=== PATIENT | male | born 1955 | race Caucasian/White ===

== ENCOUNTER 2017-12-24 05:49 | Day surgery (SDC) | payer OTHER | END 2017-12-24 07:15 | disposition home or self-care (01) | LOC: CCL 05:49 → SDS 05:49 | DX: R07.9 Chest pain, unspecified (principal); Z53.9 Procedure and treatment not carried out, unspecified reason; Z87.891 Personal history of nicotine dependence; I10 Essential (primary) hypertension; R94.31 Abnormal electrocardiogram [ECG] [EKG] ==

== ENCOUNTER 2017-12-30 05:22 | Day surgery (SDC) | payer OTHER ==
[2017-12-29] MEDS: SOD CHLORIDE 0.9% 1,000 ML IV (06:00)
[2017-12-30 06:12] LABS: ADD MAN DIFF? NO
[2017-12-30 06:22] LABS: BASOPHILS % 0.6 % (0.0-2.0); EOSINOPHILS # 0.2 10^3/ul (0.0-0.5); EOSINOPHILS % 2.3 % (0.0-7.0); HEMATOCRIT 45.3 % (42.0-52.0); HEMOGLOBIN 15.6 g/dl (14.0-18.0); LYMPHOCYTES # 1.9 10^3/ul (0.8-2.9); MEAN CORPUSCULAR HEMOGLOBIN 31.7 pg (29.0-33.0); MEAN CORPUSCULAR HGB CONC 34.4 g/dl (32.0-37.0); MEAN CORPUSCULAR VOLUME 92.1 fl (82.0-101.0); MEAN PLATELET VOLUME 11.9 fl (7.4-10.4); MONOCYTE # 0.4 10^3/ul (0.3-0.9); MONOCYTES % 6.5 % (0.0-11.0); NEUTROPHIL # 3.9 10^3/ul (1.6-7.5); NEUTROPHILS % 60.4 % (39.0-77.0); PLATELET COUNT 232 10^3/UL (140-415); RED BLOOD COUNT 4.92 10^6/ul (4.70-6.10); RED CELL DISTRIBUTION WIDTH 12.1 % (11.5-14.5)
[2017-12-30 06:22] LABS: WHITE BLOOD COUNT 6.5 10^3/ul (4.8-10.8)
[2017-12-30 06:41] LABS: ANION GAP 11 (8-16); BLOOD UREA NITROGEN 17 mg/dl (7-20); CALCIUM 9.3 mg/dl (8.4-10.2); CARBON DIOXIDE 27 mmol/L (21-31); CHLORIDE 105 mmol/L (97-110); GLUCOSE 109 mg/dl (70-220); POTASSIUM 3.3 mmol/L (3.5-5.1); SODIUM 140 mmol/L (135-144)
[2017-12-30 06:42] LABS: INR 0.88; PT RATIO 0.9
[2017-12-30] MEDS ORDERED: SOD CHLORIDE 0.9% 1,000 ML IV (07:09)
[2017-12-30] MEDS ORDERED: FENTAnyl 50 MCG/ML VIAL (07:12)
[2017-12-30] MEDS ORDERED: MIDAZOLAM 1 MG/ML 2 ML INJ (07:12)
[2017-12-30] MEDS ORDERED: IODIXANOL LOCM 100 ML BTL (07:12)
[2017-12-30] MEDS ORDERED: HEPARIN 1000 UNITS/ML 10 ML INJ (07:12)
[2017-12-30] MEDS ORDERED: LIDOCAINE 1% (MDV) 20 ML INJ (07:12)
[2017-12-30] MEDS ORDERED: NITROGLYCERIN (IC) 100 MCG/ML INJ (07:13)
[2017-12-30] MEDS ORDERED: VERAPAMIL 5 MG INJ (07:13)
[2017-12-30] MEDS ORDERED: SOD CHLORIDE 0.9% 500 ML (07:33)
== END 2017-12-30 11:02 | disposition home or self-care (01) ==
LOC: SDS 05:22
DX: I42.9 Cardiomyopathy, unspecified (principal); I25.10 Atherosclerotic heart disease of native coronary artery without angina pectoris; Z87.891 Personal history of nicotine dependence
CPT/HCPCS: 80048; 85025; 85610; 93005; 93458